=== PATIENT | male | born 1950 | race Caucasian/White ===

== ENCOUNTER 2019-08-24 12:01 | Day surgery (SDC) | payer OTHER, SELFPAY ==
[2019-08-23 07:37] VITALS: BMI 40.0
[2019-08-24] VITALS (8 sets, daily range): BP systolic 127–154; BP diastolic 79–96; PULSE 63–74; RESP 8–18; TEMP 36.1–36.9; O2SAT 92–97; BMI 40.6
[2019-08-24] MEDS: LACTATED RINGERS 1,000 ML 42 ML IV ×2 (12:41→15:47)
--- NOTE | 2019-08-24 13:26 | P.OP_ITS ---
Operative Date/Time/Diagnoses Date of procedure: 08/24/19 Time of procedure: 16:01 Pre-op diagnosis: Medial lateral meniscal tear left knee Post-op diagnosis: same Procedure & Clinicians Procedure: Left knee arthroscopy with partial medial lateral meniscectomy Same procedure as scheduled: Yes Indications: The patient presents today for left knee arthroscopy after failure of conservative treatment. The nature of the procedure including the risks and benefits, alternatives, postoperative course and expected outcome were discussed and all questions answered. Consent was obtained. Operative site confirmed and marked. Surgeon: Darryl Angelo Inbound Telemarketer: Silas Stokes Click Yes if Unassisted: Yes Anesthesia Type: General and Local Operative Notes Findings: There is a horizontal tear of the posterior horn of the lateral meniscus with an under sided flap. This was debrided leaving just the superior portion of the meniscus. There was an intact rim of remaining meniscus. 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 Fairly mild chondromalacia of the lateral femoral condyle. There was complex tearing of the mid and posterior horn of the medial meniscus. This was trimmed to a stable rim with a shaver. There was grade 2 chondromalacia throughout the medial compartment. There was just grade 1 chondromalacia of the patellofemoral joint with normal tracking. ACL and PCL were intact. No other abnormalities. Closure Type: primary Specimen(s): none sent Estimated Blood Loss (mL): 1 Blood products transfused: none Procedure in detail: The patient was taken to the operative suite and given prophylactic antibiotics. Examination under anesthesia was performed. The leg was then prepped and draped in usual sterile fashion. The leg was exsanguinated with an Esmarch dressing and the tourniquet raised to 300 torr. The portal sites were anesthetized with 1% lidocaine with epinephrine and then established with an 11 blade. Medial and lateral parapatellar working portals were utilized. The scope was placed into the medial portal and into the lateral compartment of the knee. The knee was placed in the figure 4 position. The knee was then allowed to hang down at 90? and the notch evaluated. The knee was then extended and the scope switched to the lateral portal and placed up in the anterior compartment. The patellofemoral joint, medial gutter, lateral gutter and suprapatellar pouch were inspected. A valgus force was then placed across the knee over lateral stress post and the medial compartment was evaluated. See specific findings and procedures above. The arthroscopy was completed and the knee drained. The knee was filled with 30 mL of 0.5% ropivacaine and 4 of morphine. The portal sites were closed with Steri-Strips. A sterile gauze and Alexander wrap dressing was applied. The patient tolerated procedure well and was returned to recovery room in good condition. Complications: none Post-operative Condition: stable Disposition: same day surgery Plan for aftercare: Progress weight-bearing and activity as tolerated. Discharge to home.
--- NOTE | 2019-08-24 13:26 | PM.PREOP ---
Pre-operative Note Interval Note History & Physical reviewed/Exam performed by Physician: Yes Changes to H&P: No
[2019-08-24] MEDS: CEFAZOLIN 2 GM/100 ML FROZ.PIGGY IV (15:15)
[2019-08-24] MEDS: LIDOCAINE 1% W/EPI 20 ML INJ (15:31)
[2019-08-24] MEDS: ROPIVACAINE 0.5% PF 5 MG/ML 20ML VIAL 10 ML INJ (15:45)
[2019-08-24] MEDS: OXYCODONE/ACETAMINOPHEN 5/325 TABLET 1 TAB PO (16:20)
--- NOTE | 2019-08-24 16:21 | SUR.PHASEI ---
Patient arrived in PACU A\O x4. YOSELYN's x4. [place] CDI. VSS. Gave po pain medication for long ride home.
--- NOTE | 2019-08-24 16:31 | SUR.PHASEII ---
PT ARRIVED TO PHASE II VIA STRETCHER. PT SITTING UP AND TALKING TO RN. IV SITE CLEAR AND INFUSING WITHOUT DIFFICULTLY. DRSG OBSERVED TO BE C/D/I. BED IN LOWEST POSITION AND CALL LIGHT GIVEN TO PT. PT APPEARS COMFORTABLE AT THIS TIME.
== END 2019-08-24 17:01 | disposition home or self-care (01) ==
PROVIDERS: Visit Provider Orthopaedic Surgery
PROC: (CPT 29870; principal; 2019-08-24 14:30)
DX: M23.92 Unspecified internal derangement of left knee (principal); M17.12 Unilateral primary osteoarthritis, left knee; M94.262 Chondromalacia, left knee
CPT/HCPCS: 29880; J0690; J1100; J1885; J2250; J2405; J2704; J3010